=== PATIENT | male | born 1945 | race Caucasian/White ===

== ENCOUNTER → 2017-10-20 09:06 | Outpatient (CLI) | payer MEDICARE, OTHER, SELFPAY ==
--- NOTE | 2017-10-20 13:28 | NEURO ---
NCS and/or EMG Patient Report Ordering Doctor: Eze Lopez DATE OF SERVICE: 10/20/17 Je Rodgers is a 71-year-old male who presents for electrodiagnostic testing of the lower limbs. He reports complaints of numbness and tingling in the feet bilaterally. This is been ongoing for the past 6-12 months. Electrodiagnostic findings: Left peroneal motor nerve demonstrates normal distal latency with reduced amplitude and reduced conduction velocity. Right peroneal motor nerve demonstrates prolonged distal latency with reduced amplitude and reduced conduction velocity. Tibial motor nerve bilaterally demonstrates prolonged distal latency with reduced amplitude and conduction velocity. Prolonged tibial and peroneal F waves noted bilaterally. Prolonged H reflex bilaterally. Right sural nerve demonstrates prolonged distal latency. No other sensory responses were obtainable. On needle EMG, motor units of increased amplitude and duration are noted in the gastrocnemius bilaterally. Electrodiagnostic impression: This is an abnormal study in the lower limbs 1. Findings consistent with advanced peripheral polyneuropathy, with involvement of sensory and motor nerve fibers. There is evidence of axonal loss. Etiology of the condition is unknown and will require further workup. 2. No EMG evidence is noted for lumbosacral radiculopathy. If there are any further questions, please do not hesitate to contact me
== END ==
PROVIDERS: Family Provider Family Medicine; PCP Family Medicine; Visit Provider Nurse Practitioner Family
DX: R20.0 Anesthesia of skin (principal); R20.2 Paresthesia of skin
CPT/HCPCS: 95886; 95912

== ENCOUNTER → 2018-01-11 10:15 | Outpatient (CLI) | payer MEDICARE, OTHER, SELFPAY ==
[2018-01-11 11:15] LABS: Hemoglobin A1c 5.6 % (4.2-6.3)
[2018-01-11 11:42] LABS: Creatinine, Serum 0.94 mg/dL (0.70-1.30); EST Glomerular Filtration Rate 84 mL/min (>60); Est Glom Filt Rate - Afr Amer 101 mL/min (>60); Rheumatoid Factor < 10.0 IU/mL (<15); Thyroid Stim Hormone (TSH) 3.05 uIU/mL (0.358-3.74)
[2018-01-12 09:47] LABS: Vitamin B12 310 pg/mL (211-911)
[2018-01-12 12:08] LABS: SJOGREN'S Anti-SS-A test < 0.2 AI (0.0-0.9); SJOGREN'S Anti-SS-B test < 0.2 AI (0.0-0.9)
[2018-01-12 12:59] LABS: ANTINUCLEAR ANTIBODIES DIRECT Negative (Negative)
[2018-01-13 16:11] LABS: Albumin 3.6 g/dL (2.9-4.4); Albumin, Ur 32.5 % (.); Alpha-1-Globulin, Ur 3.5 % (.); Alpha-1-Globulins 0.2 g/dL (0.0-0.4); Alpha-2-Globulins 0.6 g/dL (0.4-1.0); Alpha-2-Globulins, Ur 11.4 % (.); Beta Globulin, Ur 34.2 % (.); Cytoplasmic Ab (C-ANCA) <1:20 titer (Neg:<1:20); Gamma Globulin 1.2 g/dL (0.4-1.8); Gamma Globulin, Ur 18.3 % (.); Immunoglobulin A 281 mg/dL (61-437); Immunoglobulin G 967 mg/dL (700-1600); Immunoglobulin M 127 mg/dL (15-143); M-Spike, Ur % Not Observed % (Not Observed); PROEL- TOTAL PROTEIN 6.7 g/dL (6.0-8.5); Total Protein, Ur 12.9 mg/dL (Not Estab.)
[2018-01-14 11:35] LABS: Arsenic 7245 6 ug/L (2-23); Lead, Blood 1 ug/dL (0-19); Perinuclear Ab (P-ANCA) <1:20 titer (Neg:<1:20)
== END ==
PROVIDERS: Family Provider Family Medicine; PCP Family Medicine; Visit Provider Psychiatry & Neurology Neurology
DX: E11.40 Type 2 diabetes mellitus with diabetic neuropathy, unspecified (principal)
CPT/HCPCS: 36415; 82175; 82565; 82607; 82784; 83036; 83655; 83825; 84165; 84166; 84443; 86038; 86235; 86256; 86334; 86335; 86431

== ENCOUNTER 2019-12-21 01:01 | Emergency (ER) | payer MEDICARE, OTHER, SELFPAY ==
[2019-12-21 01:06] VITALS: BP 167/93; PULSE 68; RESP 18; TEMP 36.2; O2SAT 97; BMI 29.2
[2019-12-21 01:12] VITALS: BP 167/93; PULSE 68; RESP 18; TEMP 36.2; O2SAT 97
--- NOTE | 2019-12-21 01:13 | ED.VIS.URI ---
History of Present Illness Chief Complaint: Nosebleed Informant: Patient Onset: Today Context: Gradual Onset Current Severity: Mild Maximum Severity: Mild Narrative: The patient is a 74-year-old male with no significant medical history the presents to the emergency department epistaxis. Patient states that he was getting ready for bed. He does use a CPAP at night. He blew his nose, began to have bleeding from the left nares. He states he is never had nosebleed like this before. He is not on anticoagulants. He denies any weakness or lightheadedness. He is otherwise been in his normal state of health. He held pressure and presented here immediately. Prior similar symptoms: No Recent Illness/Hospitalization: No Past Medical History - Allergies and Home Meds Allergies/Adverse Reactions: Allergies No Known Allergies Allergy (Verified 12/31/15 14:03) Primary Care Physician: Terrell Amaya MD [Primary Care Provider] - Prior records reviewed: Yes Past Medical History: - - Hypertension Surgical History: no surgical history Smoking Status: Never smoker Review of Systems General: Denies: Chills, Fever, Sweats Eyes: Denies: Visual changes - bilaterally, Diplopia ENT: Denies: Rhinorrhea, Sore throat Cardiovascular: Denies: Chest pain, Palpitations Respiratory: Denies: Dyspnea, Cough, Dyspnea on exertion Gastrointestinal: Denies: Abdominal pain, Nausea, Vomiting, Diarrhea, Melena, Hematochezia Genitourinary: Denies: Dysuria, Hematuria, Frequency Musculoskeletal: Denies: Back pain, Extremity Pain Skin: Denies: Rash, Wounds Neurological: Denies: Headache, Weakness, Numbness Physical Exam Vital Signs/Narrative: Vital Signs Temp Pulse Resp BP Pulse Ox 12/21/19 01:12 97.1 F L 68 18 167/93 H 97 12/21/19 01:06 97.1 F L 68 18 167/93 H 97 Inital Vital Signs reviewed: Yes General: Well nourished, Well developed Head: Normocephalic, Atraumatic Eyes: Perrl, EOMI Ears: Normal external canal, TM's clear Nose: No Rhinorrhea, Swollen Turbinates, - - Epistaxis from the left nares. No evidence of posterior bleeding. Mouth/Throat: Normal Inspection, No Posterior Erythema Neck: Supple, Nontender Cardiovascular: Regular rate, Regular rhythm, No murmurs Respiratory: No distress, CTA bilaterally, Chest nontender Abdomen: Soft, Nontender, Nondistended, Normal bowel sounds Back: Nontender, Normal Inspection Extremities: Nontender, No edema Skin: Normal color, No rash Neurological: Alert, Oriented x3, Cranial nerves II-XII grossly intact, Normal Strength, Normal Sensation Psychological: Normal affect Diagnostic/Tx/Re-eval - Medical Decision Making The patient is not on anticoagulants. He did appear to have bleeding from the left nares. I had the patient blow his nose. Afrin-soaked pledgets were then placed in the bilateral nares with epistaxis clip. After 15 minutes, the nose was reevaluated. There did appear to be a visible vessel at the most proximal aspect of the septum on the left. Cautery was done. He did have some scant bleeding with cautery and Afrin was replaced. This was held and reevaluated. There is no active bleeding, but given the friability of the tissue I was concerned for rebleed. A small Merisel pack was placed. The patient was observed and ambulated. He had no further bleeding. He will be discharged home. Impression 1. Epistaxis ED Disposition - Plan for ED Patient: Disposition: Home or Assisted Living Instructions: Nosebleed Referrals: Terrell Amaya MD [Primary Care Provider] -
[2019-12-21] MEDS: Oxymetazoline 0.05% 1 SPRAY SPRAY.BTL 2 SPRAY NASAL (01:18)
[2019-12-21] MEDS: Silver Nitrate (BKC) 1 EACH TOPICAL (01:24)
--- NOTE | 2019-12-21 09:19 | ED.RN ---
SEE DOWNTIME DOCUMENTATION FROM [id number]
== END 2019-12-21 02:10 | disposition home or self-care (01) ==
PROVIDERS: Emergency Provider Emergency Medicine; PCP Family Medicine
DX: R04.0 Epistaxis (principal); I10 Essential (primary) hypertension
CPT/HCPCS: 30901; 99281; 99283